=== PATIENT | male | born 1980 | race Two or more races ===

== ENCOUNTER 2022-09-03 21:20 | Emergency (ER) | payer MEDICAID, OTHER ==
[~2022-09-03] VITALS: Ht 167.6 cm; Wt 118.2 kg
[2022-09-03 21:59] LABS: Basophils # (auto) 0.1 10 ^3/uL (0-0.2); Basophils % (auto) 1.1 % (0.0-2.0); Eosinophils # (auto) 0.4 10 ^3/uL (0-0.8); Eosinophils % (auto) 4.2 % (0.0-7.0); Hematocrit 48.7 % (41.0-53.0); Hemoglobin 15.8 g/dL (13.5-17.5); Lymphocytes # (auto) 1.9 10 ^3/uL (0.4-5.4); Lymphocytes % (auto) 20.5 % (10.0-50.0); Mean Corpuscular Hemoglobin 27.2 pg (28.0-32.0); Mean Corpuscular Hgb Conc. 32.6 g/dL (32.0-36.0); Mean Corpuscular Volume 83.5 fL (80.0-100.0); Monocytes # (auto) 0.7 10 ^3/uL (0-1.3); Monocytes % (auto) 7.9 % (0.0-12.0); Neutrophils # (auto) 6.1 10 ^3/uL (1.6-8.6); Neutrophils % (auto) 66.3 % (37.0-80.0); Nucleated Red Blood Cells % 0.1 %; Red Blood Cells 5.83 10^6/uL (4.5-5.90); Red Cell Distribution Width 14.7 % (11.8-14.3); White Blood Cell 9.1 10^3/uL (4.4-10.8)
[2022-09-03 22:13] LABS: Albumin 3.5 g/dL (3.4-5.0); Calcium 8.4 mg/dL (8.5-10.1); Potassium 3.8 mmol/L (3.5-5.1)
[2022-09-03] MEDS ORDERED: METOCLOPRAMIDE HCL 5MG/ml INJ 2ml VIAL IV ONE (22:15)
[2022-09-03] MEDS ORDERED: diphenhdrAMINE HCL 50 MG/1 ML VL IV ONE (22:15)
[2022-09-03 22:16] LABS: BUN/Creatinine Ratio 13.9 (10.0-20.0); Bilirubin, Total 0.3 mg/dL (0.2-1.0); Total Protein 7.5 g/dL (6.4-8.2)
[2022-09-03 22:17] LABS: INR 1.05 (0.9-1.15); Partial Thromboplastin Time 28.1 SEC (24.5-34.5)
[2022-09-04 03:51] VITALS: BP 128/91
== END 2022-09-04 05:05 | disposition home or self-care (01) ==
LOC: ER 21:20 → EDBD 21:20 → ER 09-04 05:03
DX: R42 Dizziness and giddiness (principal); R09.89 Other specified symptoms and signs involving the circulatory and respiratory systems; E87.8 Other disorders of electrolyte and fluid balance, not elsewhere classified
CPT/HCPCS: 36415; 70450; 71045; 80053; 84484; 85025; 85610; 85730; 96374; 96375; 99285; J1200; J2765